=== PATIENT | female | born 1945 | race Caucasian/White ===

== ENCOUNTER 2017-02-21 23:28 | Inpatient (IN) | payer OTHER ==
--- NOTE | ~2017-02-21 | DS ---
Unit #: [id number] #: [id number] Patient: SARAH COTE [id number] [address] [place], [place] [address] [id number] I MR#: [id number] NAME: SARAH COTE ROOM: 317 Age: 71 Sex: F Admission Date: 02/21/2017 : 1945 Discharge Date: 02/23/2017 Attending Physician: Zaire Grace M.D. Primary Care Physician: Jose Ramon Torres M.D. DISCHARGE SUMMARY ADMITTING DIAGNOSIS Acute hypoxic respiratory failure. FURTHER DIAGNOSES 1. History of stroke. 2. History of hypertension. 3. Seizure disorder. 4. Hyperlipidemia. 5. History of duodenal ulcer. 6. Anxiety. HISTORY OF PRESENT ILLNESS Patient is a 71-year-old lady with a past medical history of stroke, hyperlipidemia, history of COPD, smoker and multiple medical problems. Presented to the hospital with the chief complaint of cough and shortness of breath. HOSPITAL COURSE She was started on steroids, breathing treatments. Slowly her breathing has improved. She is tapered down to oral steroids today. She says she has to take care of some work at home, and she is clinically feeling better, and she is eager to go home. We are discharging her home. Request for her to follow with her primary care in 1-2 weeks. PHYSICAL EXAMINATION ON THE DAY OF DISCHARGE VITAL SIGNS: Temperature 98.6, pulse rate 75, respirations 18, blood pressure 110/64. GENERAL: Patient is alert, oriented x3, lying in the bed, no acute distress. She is thin. HEENT: Normocephalic, atraumatic. No icterus. PERRLA. Extraocular muscles intact. NECK: Supple. No JVD. HEART: S1, S2. Regular rate and rhythm. CHEST: Bilateral equal air entry. Clear to auscultation. ABDOMEN: Soft, nontender. EXTREMITIES: No edema. Normal pulses. RECOMMENDATIONS We counselled her to quit smoking. DISCHARGE MEDICATIONS 1. Medrol Dosepak tapering dose. 2. Tylenol 350 p.r.n. 3. Coreg 12.5 mg b.i.d. Unit #: [id number] #: [id number] Patient: SARAH COTE 4. Humibid LA 600 mg b.i.d. 5. Levaquin 750 mg p.o. daily for 3 days. 6. Ventolin 90 mcg inhalation 1-2 puffs q.6 hours p.r.n. shortness of breath. 7. Altace 5 mg daily. FOLLOWUP She is instructed to follow with her primary care in 1-2 weeks. NOTE: Total time spent in her discharge - 28 minutes. Dictated by... Sue Tineo TD: 02/23/2017 17:52 JOB #: [id number] DISCHARGE SUMMARY Page 1 of 1 X X DISCHARGE SUMMARY
--- NOTE | ~2017-02-21 | EKG ---
PATIENT: SARAH COTE UNIT #: [id number] Ventricular Rate: 87 BPM Atrial Rate: 87 BPM P-R Interval: 140 ms QRS Duration: 72 ms Q-T Interval: 376 ms QTC Calculation(Bezet): 452 ms P Amado: -11 degrees Calculated R Amado: -25 degrees Calculated T Amado: 69 degrees Diagnosis Line: Sinus rhythm with Premature atrial complexes Diagnosis Line: Borderline ECG Diagnosis Line: When compared with ECG of 21-FEB-2017 19:43, Diagnosis Line: (unconfirmed) Diagnosis Line: Premature atrial complexes are now Present Diagnosis Line: Questionable change in QRS axis Diagnosis Line: Confirmed by BUDDY STOREY MD ([id number]) on Diagnosis Line: 02/23/2017 8:46:29 AM INTERPRETING : MINAL
--- NOTE | ~2017-02-21 | CR72 ---
[facility] A Service of [facility] RADIOLOGY TEXT RESULTS PATIENT: SARAH COTE LOCATION: [facility] [id number] : [birth year] UNIT #: [id number] AGE: [address]: Zaire Grace MD SEX: F ORDER DR: [id number] [facility] [address] [place], [place] [address] [id number] MR#: [id number] Acc #: [id number] NAME: SARAH COTE : 1945 SEX: F STUDY DATE/TIME: 02/21/2017 23:20 UNIT: [facility] ROOM: 36145 STUDY DESCRIPTION: CR Chest Single View Portable Attending Physician: Zaire Grace M.D. Ordering Physician: Ed Roni Samayoa M.D. Primary Care Physician: Jose Ramon Torres M.D. MEDICAL IMAGING REPORT This report is preliminary unless electronic signature is present EXAM AP portable chest date 02/21/2017 23:20 HISTORY 71-year-old female with shortness breath, weakness for 1 week. COPD. Smoking history "for years". COMPARISON PA and lateral chest 09/04/2016 FINDINGS Lungs are hyperinflated and emphysematous. No acute airspace disease is identified. No pleural effusion or pneumothorax is evident. Heart size is within normal limits. IMPRESSION 1. Pulmonary hyperinflation with emphysematous change. No acute chest findings. Dictated by... Shannen Robles M.D. THIS IS AN ELECTRONICALLY VERIFIED REPORT Shannen Robles M.D. at 02/22/2017 6:02 AM CHRISTIANO/nimco TD: 02/22/2017 02:19 JOB #: [id number] MEDICAL IMAGING REPORT Page 1 of 1 COPY
--- NOTE | ~2017-02-21 | HP ---
Unit #: [id number] #: [id number] Patient: SARAH COTE [id number] [facility] [address] [place], [place] [address] [id number] I MR#: [id number] NAME: SARAH COTE ROOM: 56371 Age: 71 Sex: F Admission Date: 02/21/2017 : 1945 Attending Physician: Zaire Grace M.D. Primary Care Physician: Jose Ramon Torres M.D. HISTORY AND PHYSICAL CHIEF COMPLAINT Shortness of breath, generalized weakness. DISCUSSION This is a 71-year-old female with past medical history of hypertension, dyslipidemia, history of CVA in 2014 with right thalamus and internal capsule infarct. At that time she had left upper extremity weakness, which has resolved, history of seizure, hypertension, dyslipidemia, duodenal ulcer, anxiety. She presented to emergency room with chief complaint of having shortness of breath, generalized weakness. She had been having hypoxia on ambulation, oxygen saturation dropped to 86% on ambulation. She has been eventually admitted for acute hypoxia and acute exacerbation of COPD. She denies chest pain. She denies nausea, vomiting, fever, chills, cough or other complaints, but she has been having feeling generalized weak. PAST MEDICAL HISTORY 1. History of admission to [facility] on February 06 through February 08, 2015 for right upper quadrant pain. At that time she had workup, abdominal HIDA scan, but she declined any surgical intervention. 2. History of CVA with right thalamus and internal capsule infarct with left upper extremity weakness in January 2015. 3. History of hypertension. 4. History of dyslipidemia. 5. History of seizures in the past. She used to be on Keppra in the past. She is currently not on antiepileptic medication. 6. History of COPD with continued tobacco abuse. 7. History of echocardiogram in the past. Shows ejection fraction 55%. PAST SURGICAL HISTORY 1. History of cardiac cath in the past. 2. History of EGD in January 2015 showing large duodenal ulcer. SOCIAL HISTORY She lives with her son. She smokes 1 pack daily. Still she continues to smoke. She denies other illicit drug use. ALLERGIES No known drug allergies. HOME MEDICATION She takes ramipril 5 mg daily, Coreg 12.5 b.i.d. Unit #: [id number] #: [id number] Patient: SARAH COTE REVIEW OF SYSTEMS All review of systems negative except history of present illness. PHYSICAL EXAMINATION GENERAL: On examination, elderly female lying in the bed comfortably, currently not any distress. She is alert, awake, oriented x3. CURRENT VITALS: Temp is 97.7, heart rate 86, respirations 18, blood pressure 189/95. HEENT EXAMINATION: Pupils equal and reactive to light and accommodation. Head is normocephalic, atraumatic. NECK: Supple. No JVD. HEART: S1, S2. Regular rate and rhythm. LUNGS: Poor air entry bilaterally. ABDOMEN: Soft, nontender, nondistended. Bowel sounds positive. EXTREMITIES: Inspection normal. No cyanosis. No clubbing. No edema. NEUROLOGIC: No focal neurologic deficits. DIAGNOSTIC STUDIES LABORATORY WORKUP IS FOLLOWING: Glucose 75. Troponin less than 0.05. Chemistry - Sodium 137, potassium 4.7, chloride 100, glucose 85, BUN 21, creatinine 0.81. LFTs within normal limits. White count 9, hemoglobin 15, hematocrit 47, platelets 272. IMAGING: Chest x-ray - Normal. ASSESSMENT AND PLAN 1. Acute exacerbation of COPD with acute hypoxia on ambulation. Will admit the patient, start her on IV steroids, IV Levaquin, Mucinex and DuoNeb. 2. History of CVA in the past in January 2015 with right thalamus and internal capsule infarct. 3. History of seizures. Currently she has been off of antiseizure medication. 4. History of hypertension. She is on ramipril 5 mg daily and Coreg 12.5 b.i.d. Will resume those medications. 5. History of dyslipidemia in the past. Not on statins. 6. History of duodenal ulcer in January 2015. Will place on PPI. 7. History of anxiety. 8. Tobacco abuse. 9. DVT prophylaxis. Will place the patient on SCDs. Dictated by Richardson Samuels M.D. PABLO/sabrina TD: 02/22/2017 08:02 JOB #: [id number] Unit #: [id number] #: [id number] Patient: SARAH COTE HISTORY AND PHYSICAL Page 1 of 1 X X HISTORY AND PHYSICAL
[2017-02-21 20:29] LABS: BASOPHIL% 0.3 % (0-2.5); EOSINOPHIL# 0.5 X10e3 (0-0.7); EOSINOPHIL% 5.7 % (0.0-7.0); HEMATOCRIT 47.4 % (35.0-45.0); HEMOGLOBIN 15.6 gm/dL (12.0-16.0); LYMPHOCYTE# 2.7 X10e3 (1.0-3.5); LYMPHOCYTE% 29.2 % (17.0-45.0); MEAN CELL VOLUME 90.2 FL (83-96); MEAN CORPUSCULAR HEMOGLOBIN 29.7 PG (28-34); MEAN PLATELET VOLUME 8.6 FL (6.5-11.5); MONOCYTE# 0.7 X10e3 (0-1.0); MONOCYTE% 7.5 % (3.0-12.0); NEUTROPHIL# 5.3 X10e3 (1.5-7.1); NEUTROPHIL% 57.3 % (40-75); PLATELET COUNT 272 X10e3 (140-420); RED BLOOD COUNT 5.26 X10e (3.90-5.30); RED CELL DISTRIBUTION WIDTH 13.6 % (11.0-15.5); WHITE BLOOD COUNT 9.3 X10e3 (4.0-10.5)
[2017-02-21 20:33] LABS: DIFF IND NO
[2017-02-21 20:49] LABS: ALBUMIN SERUM 4.1 g/dL (3.5-5.0); ALKALINE PHOSPHATASE 63 U/L (32-92); ALT (SGPT) 12 U/L (10-40); AST (SGOT) 15 U/L (10-42); BILIRUBIN,TOTAL 0.5 mg/dL (0.2-2.0); BLOOD UREA NITROGEN 21 mg/dL (9-23); BUN/CREATININE RATIO 26.25; CALCIUM SERUM 9.3 mg/dL (8.4-10.2); CARBON DIOXIDE 26 mmol/L (22-31); CHLORIDE 100 mmol/L (100-111); CREATININE SERUM 0.8 mg/dL (0.6-1.4); GLOM FILT RATE Estimated 73.7 mL/min (>60); GLUCOSE FASTING 85 mg/dL (70-110); POTASSIUM 4.1 mmol/L (3.5-5.1); PROTEIN TOTAL SERUM 7.1 g/dL (6.0-8.3); SODIUM 137 mmol/L (135-145)
[2017-02-21 20:53] LABS: BILIRUBIN, DIRECT <0.1 mg/dL (0.0-0.2); BILIRUBIN,INDIRECT 0.4 mg/dL (0.0-0.9)
[2017-02-21 21:48] LABS: POC - CKMB <1.0 ng/mL (0.0-7.9); POC - TROPONIN <0.05 ng/mL (<=0.05)
[~2017-02-21 23:28] MED LIST: ACETAMINOPHEN650 M1 PO; ACTONEL PO; ACTONEL5 MG; ALPRAZOLAM PO; ALPRAZOLAM0.5 MG PO; ALPRAZOLAM1 MG PO; ALTACE10 M2 PO; ALTACE2.5 MG PO; ALTACE5 M1; ALTACE5 M1 PO; AMBIEN PO; AMBIEN10 MG PO; AMLODIPINE BESY10 MG PO; AMLODIPINE BESYL5 MG; AMLODIPINE BESYL5 MG PO; ASPIRIN EC81 M1 PO; ASPIRIN81 M1 PO; BACLOFEN10 MG; BACLOFEN10 MG PO; CARVEDILOL12.5 MG PO; CARVEDILOL3.125 MG PO; COLACE PO; COREG CR 10MG10 MG PO; COREG3.125 MG; COREG3.125 MG PO; DULERA 100 MCG/13 GM; DULERA 100 MCG/13 GM IH; FAMOTIDINE20 M1 PO; HYDROCODON-ACE1 EAC4 PO; HYDROCODON-ACE1 EAC5 PO; IBUPROFEN600 MG; KEPPRA500 M1 PO; KEPPRA500 M2; KEPPRA500 M2 PO; KEPPRA500 MG PO; LIPITOR PO; LORTAB 10/500 T1 TAB PO; LORTAB 5/500 TA1 TA1 PO; MELOXICAM15 MG PO; MILK OF MAGNESIA PO; MOBIC15 MG PO; NICOTINE TRANSD21 MG EXT; NORCO 10-325 TA1 TAB PO; NORCO 10/3251 TAB PO; NORCO 5/325 TAB1 TAB PO; NORVASC PO; PAROXETINE HCL20 M1 PO; PAROXETINE HCL20 MG PO; PAROXETINE HCL40 M1 PO; PAROXETINE HCL40 MG PO; PAXIL PO; PAXIL30 MG PO; PAXIL40 MG; PAXIL40 MG PO; PEPCID40 MG PO; PLAVIX PO; PRAVACHOL PO; PRAVACHOL10 MG PO; PRAVACHOL20 MG PO; PRAVASTATIN SOD20 MG; PRAVASTATIN SOD20 MG PO; PRILOSEC40 MG PO; PROAIR HFA8.5 GM IH; PROTONIX PO; PROVENTIL17 GM; RAMIPRIL; RAMIPRIL5 MG PO; SIMVASTATIN5 MG PO; SYMBICORT 16010.2 GM IH; SYMBICORT INH; THEO-24400 MG PO; THEO-DUR200 MG PO; THEOPHYLLIN PO; THEOPHYLLINE400 MG; THEOPHYLLINE400 MG PO; TRAMADOL HCL50 M1 PO; TRILEPTAL PO; TYLENOL325 M1 PO; VITAMIN D31000 UNIT PO; VOLTAREN75 MG PO; XANAX0.5 M1 PO; XANAX1 MG; XANAX1 MG PO; ZYPREXA PO
[2017-02-22] MEDS ORDERED: COREG12.5 MG PO (00:05)
[2017-02-22] MEDS ORDERED: RAMIPRIL5 MG PO (00:05)
[2017-02-23 05:07] LABS: HEMATOCRIT 40.5 % (35.0-45.0); MEAN CELL VOLUME 89.7 FL (83-96); MEAN CORPUSCULAR HEMOGLOBIN 29.3 PG (28-34); MEAN CORPUSCULAR HGB CONC 32.6 g/dL (30-36); MEAN PLATELET VOLUME 8.8 FL (6.5-11.5); RED BLOOD COUNT 4.51 X10e (3.90-5.30); RED CELL DISTRIBUTION WIDTH 13.4 % (11.0-15.5); WHITE BLOOD COUNT 13.8 X10e3 (4.0-10.5)
[2017-02-23 05:24] LABS: HEMOGLOBIN 13.2 gm/dL (12.0-16.0)
[2017-02-23 06:16] LABS: BUN/CREATININE RATIO 36.25; CALCIUM SERUM 8.8 mg/dL (8.4-10.2); CREATININE SERUM 0.8 mg/dL (0.6-1.4); GLOM FILT RATE Estimated 73.7 mL/min (>60); POTASSIUM 4.9 mmol/L (3.5-5.1)
[2017-02-23] MEDS ORDERED: HUMIBID-LA600 MG PO (14:51)
[2017-02-23] MEDS ORDERED: PROTONIX PO (14:52)
[2017-02-23] MEDS ORDERED: ACETAMINOPHEN650 M4 PO (14:53)
[2017-02-23] MEDS ORDERED: LEVAQUIN750 MG PO (14:56)
[2017-02-23] MEDS ORDERED: ALBUTEROL17 GM INH (14:59)
== END 2017-02-23 15:51 | disposition home or self-care (01) | DRG 189 ==
LOC: CED 23:28 → CEDOF 23:57 → C3A PCU 02-22 14:05
PROVIDERS: Emergency Medicine; Internal Medicine
DX: J96.01 Acute respiratory failure with hypoxia (principal); J44.9 Chronic obstructive pulmonary disease, unspecified; G40.909 Epilepsy, unspecified, not intractable, without status epilepticus; Z86.73 Personal history of transient ischemic attack (TIA), and cerebral infarction without residual deficits; I10 Essential (primary) hypertension; E78.5 Hyperlipidemia, unspecified; F41.9 Anxiety disorder, unspecified; F17.210 Nicotine dependence, cigarettes, uncomplicated
CPT/HCPCS: 36415; 71010; 80048; 80076; 82553; 82947; 84484; 85025; 85027; 93005; 94640; 94760; 96374; 99285; J1956; J2060; J2920; J2930